=== PATIENT | female | born 1985 | race Caucasian/White ===

== ENCOUNTER 2017-02-17 12:16 | Outpatient (CLI) | payer BC ==
--- NOTE | 2017-02-17 16:15 | Ultrasound Report ---
LEFT BREAST ULTRASOUND: 02/17/2017 CLINICAL INDICATION: Palpable abnormality left breast. TECHNIQUE: Real-time scanning was performed with medical field representative static images obtained. FINDINGS: Ultrasound of the left upper outer quadrant was performed. Heterogeneous parenchyma is seen. No discrete solid or cystic mass is identified. No sonographically suspicious findings are seen. IMPRESSION: NEGATIVE EXAMINATION. RECOMMENDATION: CONTINUED CLINICAL SURVEILLANCE. ROUTINE ANNUAL SCREENING, TO COMMENCE AT AGE 41, UNL ESS OTHERWISE CLINICALLY INDICATED. BIRADS CATEGORY 1-NEGATIVE. JOB #: [id number] EXT JOB #:[id number]
--- NOTE | 2017-02-17 17:11 | Mammography Report ---
DIGITAL DIAGNOSTIC BILATERAL MAMMOGRAM: 02/17/2017 CLINICAL INDICATION: Palpable abnormality left upper outer quadrant. TECHNIQUE: Bilateral CC, MLO, left true lateral and laterally exaggerated craniocaudal views. This is the patient's baseline mammogram. FINDINGS: The breasts demonstrate scattered fibroglandular densities bilaterally. Asymmetric parench yma is seen in the left upper outer quadrant, without evidence of focal mass. No suspicious clustered microcalcifications or regions of architectural distortion are identified. Please also refer to left breast ultrasound. IMPRESSION: NEGATIVE EXAMINATION. RECOMMENDATION: CONTINUED CLINICAL SURVEILLANCE. ROUTINE ANNUAL SCREENING, TO COMMENCE AT AGE 41, UNL ESS OTHERWISE CLINICALLY INDICATED. BIRADS CATEGORY 2-BENIGN FINDINGS. STANDARD QUALIFYING STATEMENTS 1. This examination was reviewed with the aid of Computer-Aided Detection (CAD). 2. A negative or benign imaging report should not delay biopsy if clinically suspicious findings are present. Consider surgical consultation if warranted. More than 5% of cancers are not identified by i maging. 3. Dense breasts may obscure an underlying neoplasm. JOB #: [id number] EXT JOB #:[id number]
== END 2017-02-17 12:17 | disposition home or self-care (01) ==
LOC: DI 12:16
PROVIDERS: ATTEND Physician Assistant
DX: N63 Unspecified lump in breast (principal)
CPT/HCPCS: 76642; 77066

== ENCOUNTER 2018-05-16 12:20 | Outpatient (CLI) | payer OTHER ==
--- NOTE | 2018-05-23 08:59 | XRAY Report ---
Procedure Date: 05/16/2018 Accession Number: [id number] / [id number] Procedure: XR - Thoracic Spine 2 View CPT Code: FULL RESULT: EXAM: THORACIC SPINE RADIOGRAPHY EXAM DATE: 05/16/2018 01:21 PM. CLINICAL HISTORY: Chronic T6-T12 pain. COMPARISON: None. TECHNIQUE: 2 views. FINDINGS: Alignment: Normal. No spondylolisthesis or scoliosis. Bones: No fractures or bone lesions. Disks: Normal. Disk heights are maintained. Soft Tissues: Normal. The visualized lungs and cardiomediastinal silhouette are normal. IMPRESSION: Normal thoracic spine radiography. [facility]
== END 2018-05-16 12:21 | disposition home or self-care (01) ==
LOC: DI 12:20
PROVIDERS: ATTEND Physician Assistant
DX: M54.6 Pain in thoracic spine (principal)
CPT/HCPCS: 72070

== ENCOUNTER 2021-07-10 10:11 | Outpatient (CLI) | payer OTHER ==
--- NOTE | 2021-07-10 11:25 | XRAY Report ---
PROCEDURE: Sacrum/Coccyx INDICATIONS: PAIN IN THE COCCYX TECHNIQUE: 3 views of the sacrum and coccyx acquired. COMPARISON: None available. FINDINGS: BONES: No acute, displaced fracture or dislocation. The sacroiliac joints are symmetric. SOFT TISSUES: No focal abnormality. IMPRESSION: 1.No acute osseous abnormality. If clinical concern for an occult fracture remains, consider MR imaging. Reviewed by: Jonathan Nunes MD on 07/10/2021 11:24 AM PDT Approved by: Jonathan Nunes MD on 07/10/2021 11:24 AM PDT Station ID: [id number]
== END 2021-07-10 10:12 | disposition home or self-care (01) ==
LOC: DI.S 10:11
PROVIDERS: ATTEND Nurse Practitioner Family
DX: M53.3 Sacrococcygeal disorders, not elsewhere classified (principal)